=== PATIENT | female | born 1990 | race African-American/Black ===

== ENCOUNTER 2017-01-18 00:20 | Emergency (ER) | payer SELFPAY ==
[~2017-01-18] VITALS: Ht 172.7 cm; Wt 120.0 kg
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
[2017-01-18] MEDS ORDERED: LIDOCAINE 1%/EPINEPHrine 1:100,000 SOLN 20 ML VIAL INFIL ONE (01:00)
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
[2017-01-18] MEDS ORDERED: KETOROLAC TROMETHAMINE 30 MG/ML (IVP) VIAL IV PUSH ONE (01:15)
[2017-01-18 01:21] LABS: I-STAT POTASSIUM 3.4 MMOL/L (3.5-4.9)
[2017-01-18] MEDS ORDERED: MOBI15TA PO (01:49)
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
== END 2017-01-18 02:23 | disposition home or self-care (01) ==
LOC: EDSEX 00:20 → NEPI 00:20 → EDBD 00:20 → NEPE 02:23
DX: S21.211A Laceration without foreign body of right back wall of thorax without penetration into thoracic cavity, initial encounter (principal); S46.911A Strain of unspecified muscle, fascia and tendon at shoulder and upper arm level, right arm, initial encounter; W26.0XXA Contact with knife, initial encounter
CPT/HCPCS: 71010; 73060; 73090; 82435; 82947; 84132; 84295; 84520; 99285; J1885